=== PATIENT | male | born 1970 | race Caucasian/White ===

== ENCOUNTER 2017-09-30 07:40 | Emergency (ER) | payer SELFPAY ==
[2017-09-30] MEDS ORDERED: SILVER NITRATE APPLICATOR 1 APPL TP ONE (08:06)
[2017-09-30] MEDS ORDERED: OXYMETAZOLINE 30 ML NASAL SPRAY EACHNARE ONE (08:06)
[2017-09-30] MEDS ORDERED: COCAINE HCL 4% 4 ML BTL TP ONE (08:07)
--- NOTE | 2017-09-30 08:09 | EDPHY ---
H & P Stated Complaint: epistaxis Time Seen by Provider: 09/30/17 08:06 HPI/ROS: CHIEF COMPLAINT: Epistaxis HISTORY OF PRESENT ILLNESS: The patient presents to the ED with epistaxis from his left naris which began earlier today. The patient reports mild associated lightheadedness. He has a history of a prior nosebleed 5 months ago which was self-limited. The patient denies any history of fall or trauma. The patient takes no regular medications. He has no history of coagulopathy. REVIEW OF SYSTEMS: A comprehensive 10 point review of systems is otherwise negative aside from elements mentioned in the history of present illness. Source: Patient Exam Limitations: No limitations - Personal History Current Tetanus/Diphtheria Vaccine: No Current Tetanus Diphtheria and Acellular Pertussis (TDAP): No - Medical/Surgical History Hx Asthma: No Hx Chronic Respiratory Disease: No Hx Diabetes: No Hx Cardiac Disease: No Hx Renal Disease: No Hx Cirrhosis: No Hx Alcoholism: No Hx HIV/AIDS: No Hx Splenectomy or Spleen Trauma: No Other PMH: unk - Social History Smoking Status: Never smoked - Physical Exam Exam: General Appearance: Alert, no distress Eyes: Pupils equal and round no pallor or injection ENT, Mouth: Epistaxis noted from the left anterior septum Respiratory: There are no retractions, lungs are clear to auscultation Cardiovascular: Regular rate and rhythm Gastrointestinal: Abdomen is soft and nontender, no masses, bowel sounds normal Neurological: 5/5 strength all 4 extremities Skin: Warm and dry, no rashes Musculoskeletal: Neck is supple nontender Extremities: symmetrical, full range of motion Constitutional: Initial Vital Signs Temperature (C) 36.0 C 09/30/17 07:50 Heart Rate 68 09/30/17 07:50 Respiratory Rate 16 09/30/17 07:50 Blood Pressure 94/54 L 09/30/17 07:50 O2 Sat (%) 98 09/30/17 07:50 O2 Delivery Mode Room Air Allergies/Adverse Reactions: No Known Allergies Allergy (Unverified 09/30/17 08:13) Home Medications: Medication Instructions Recorded NK [No Known Home Meds] 09/30/17 Medical Decision Making Procedures: Procedure: Epistaxis control. Indication: nosebleed not controlled by direct pressure. Risks, benefits, alternatives discussed with patient and consent obtained. The left nares was anesthetized with topical cocaine. The anterior epistaxis was identified. The patient was treated with vaso constriction and silver nitrate cautery. Following the procedure the patient was re-examined and the bleeding was well controlled. The patient tolerated the procedure well. The procedure was performed by myself. ED Course/Re-evaluation: The patient presents to the ED with a left anterior nosebleed which was treated by myself with silver nitrate cautery. The patient was observed in the emergency department following the procedure. Blood pressure is currently 121/ 80. No tachycardia noted. CBC normal. Patient will be discharged home with customary aftercare instructions and return precautions. Differential Diagnosis: Differential diagnosis considered includes anterior epistaxis, posterior epistaxis, critical anemia - Data Points Laboratory Results: Laboratory Results 09/30/17 08:45 09/30/17 08:45 WBC 6.49 10^3/uL 10^3/uL (3.80-9.50) RBC 4.58 10^6/uL 10^6/uL (4.40-6.38) Hgb 13.9 g/dL g/dL (13.7-17.5) Hct 40.5 % % (40.0-51.0) MCV 88.4 fL fL (81.5-99.8) MCH 30.3 pg pg (27.9-34.1) MCHC 34.3 g/dL g/dL (32.4-36.7) RDW 13.5 % % (11.5-15.2) Plt Count 298 10^3/uL 10^3/uL (150-400) Medications Given: Discontinued Medications Cocaine HCl (Cocaine Hcl) 1 martita TP EDNOW ONE Stop: 09/30/17 08:08 Last Admin: 09/30/17 08:51 Dose: 1 btl Silver Nitrate/Potassium Nitrate (Silver Nitrate Applicator) 3 each TP EDNOW ONE Stop: 09/30/17 08:07 Last Admin: 09/30/17 08:51 Dose: 3 each Departure - Departure Disposition: Home, Routine, Self-Care Clinical Impression: Acute anterior epistaxis Condition: Good Instructions: Nosebleed (ED) Additional Instructions: 1. In the event of recurrent bleeding blow all clots from nose and apply pressure to nose with clamp or fingers for 15 min. 2. Return to the ED for uncontrolled bleeding. 3. If you continue to have mild intermittent bleeding I do recommend following up with the Ear Nose Throat physician you have been referred to. Referrals: Alan Rodriguez MD [Medical Doctor] - As per Instructions
[2017-09-30 09:34] VITALS: BP 121/62
== END 2017-09-30 09:39 | disposition home or self-care (01) ==
PROC: 095KXZZ Destruction of Nasal Mucosa and Soft Tissue, External Approach (ICD-10-PCS; principal; 2017-09-30)
DX: R04.0 Epistaxis (principal)